=== PATIENT | female | born 2000 | race Caucasian/White ===

== ENCOUNTER 2021-12-14 16:36 | Emergency (ER) | payer MEDICAID ==
[~2021-12-14] VITALS: Ht 162.6 cm; Wt 95.5 kg
[2021-12-14] MEDS ORDERED: ACETAMINOPHEN 500 MG TABLET PO ONE (17:00)
[2021-12-14] MEDS ORDERED: KETOROLAC TROMETHAMINE 30 MG/ML VIAL IM ONE (18:45)
[2021-12-14 19:38] VITALS: BP 135/78
== END 2021-12-14 19:38 | disposition home or self-care (01) ==
LOC: EMS 16:38
DX: M54.50 Low back pain, unspecified (principal)
CPT/HCPCS: 84703; 96372; 99283; J1885